=== PATIENT | male | born 1980 | race Caucasian/White ===

== ENCOUNTER 2021-11-19 03:59 | Day surgery (SDC) | payer BC ==
[2021-11-13 16:22] VITALS: BMI 26.7
[2021-11-19] MEDS ORDERED: MIDAZOLAM HCL 2 MG/2 ML SINGLE DOSE VIAL ONE ×2 (16:09→16:12)
[2021-11-19] MEDS ORDERED: LIDOCAINE HCL/PF 2% SDV 5ML VIAL ONE (16:11)
[2021-11-19] MEDS ORDERED: PROPOFOL 20 ML ONE ×2 (16:12→16:23)
[2021-11-19] MEDS ORDERED: DEXAMETHASONE SOD PHOSPHATE 4 MG/1 ML VIAL ONE (16:13)
[2021-11-19] MEDS ORDERED: LIDOCAINE HCL 1%, 10 MG/ML (20ML VIAL) ONE (16:18)
[2021-11-19] MEDS ORDERED: BUPIVACAINE HCL/PF 0.5% (5MG/ML) 10 ML VIAL ONE (16:18)
[2021-11-19] MEDS ORDERED: ceFAZolin 2 GRAM PREMIX BAG IVPB ONE (16:30)
[2021-11-19] MEDS ORDERED: LIDOCAINE HCL 1%, 10 MG/ML (20ML VIAL) NR ONE (16:35)
[2021-11-19] MEDS ORDERED: BUPIVACAINE HCL/PF 0.5% (5MG/ML) 10 ML VIAL IJ ONE (16:35)
[2021-11-19] MEDS ORDERED: BACITRACIN 0.9 GM PACKET TP ONE (16:59)
[2021-11-19] MEDS ORDERED: ONDANSETRON 4 MG/2 ML VIAL IVPUSH PRN (17:18)
[2021-11-19] MEDS ORDERED: oxyCODONE HCL 5 MG TABLET PO PRN (17:18)
[2021-11-19] MEDS ORDERED: LACTATED RINGERS SOLUTION 1,000 ML IV SCH (17:30)
[2021-11-19 19:10] VITALS: BP 134/76; PULSE 66; TEMP 98
== END 2021-11-19 19:10 | disposition home or self-care (01) ==
LOC: JASU-SURG 03:59
PROVIDERS: ATTEND Urology
PROC: 0VTQ0ZZ Resection of Bilateral Vas Deferens, Open Approach (ICD-10-PCS; principal; 2021-11-19 15:00)
DX: Z30.2 Encounter for sterilization (principal)
CPT/HCPCS: 88302-TC; 94760